=== PATIENT | male | born 1965 | race Caucasian/White ===

== ENCOUNTER 2018-04-02 10:12 | Emergency (ER) | payer BC ==
--- NOTE | 2018-04-02 10:37 | EKG ---
FACILITY: [facility] PATIENT NAME: LASHAUN MEDLEY : [id number] MR: [id number] V: [id number] EXAM DATE: ORDERING PHYSICIAN: JORGE HERRERA TECHNOLOGIST: Test Reason : chest pain Blood Pressure : / mmHG Vent. Rate : 095 BPM Atrial Rate : 095 BPM P-R Int : 164 ms QRS Dur : 078 ms QT Int : 364 ms P-R-T Axes : 050 038 038 degrees QTc Int : 457 ms Sinus rhythm Nonspecific ST findings No previous ECGs available Confirmed by TALHA ROME ([id number]) on 04/03/2018 5:23:37 AM Referred By: Confirmed By:TALHA ROME
[2018-04-02 10:42] LABS: PLATELET COUNT, AUTOMATED 197 K/uL (150-450)
--- NOTE | 2018-04-02 11:00 | RADIOLOGY IMAGING REPORT ---
FACILITY: [facility] - [place], [place] PATIENT NAME: Maxwell Marshall : 1965 MR: [id number] V: [id number] EXAM DATE: ORDERING PHYSICIAN: JORGE HERRERA TECHNOLOGIST: Location: [facility] [place] Patient: Maxwell Marshall : 1965 Visit/Account:[id number] Date of Sevice: 04/02/2018 Technique: CHEST PA AND LAT HISTORY: CHEST PAIN COMPARISON: None available Findings: The lungs are clear. No pleural effusion. There is elevation of the right hemidiaphragm. T he cardiomediastinal silhouette is normal. Impression: 1. No acute cardiopulmonary process. Report Dictated By: Zeeshan Mason DO at 04/02/2018 10:56 AM Report E-Signed By: Zeeshan Mason DO at 04/02/2018 10:57 AM WSN:[id number]
[2018-04-02] MEDS ORDERED: IOPAMIDOL 76% 100 ML INFUS BTL 100 ML ONE (11:38)
[2018-04-02] MEDS ORDERED: NS(*) 0.9% 50 ML BAG 50 ML ONE (11:39)
--- NOTE | 2018-04-02 12:11 | RADIOLOGY IMAGING REPORT ---
FACILITY: [facility] - [place] PATIENT NAME: Maxwell Marshall : 1965 MR: [id number] V: [id number] EXAM DATE: ORDERING PHYSICIAN: JORGE HERRERA TECHNOLOGIST: Location: [facility] Patient: Maxwell Marshall : 1965 Visit/Account:[id number] Date of Sevice: 04/02/2018 EXAMINATION: CT CHEST PULMONARY ANGIOGRAM COMPARISON: None available HISTORY: Chest pain and dyspnea. PROCEDURE: Pulmonary arterial phase imaging of the chest with 95 mL intravenous Isovue 370. Reconstru ction of the source data set includes multiplanar 2D in the sagittal and coronal planes, and 3D recon structed coronal slab MIP series. One of the following dose optimization techniques was utilized in the performance of this exam: Autom ated exposure control; adjustment of the mA and/or kV according to the patient's size; or use of an i terative reconstruction technique. Specific details can be referenced in the facility's radiology C T exam operational policy. FINDINGS: Pulmonary vasculature: There is good contrast opacification of the pulmonary arterial system. No pul monary embolism. Main pulmonary artery size is normal. Cardiac and mediastinum: Cardiac chamber size is normal. No pericardial effusion. No thoracic aorti c aneurysm. Lymph nodes: Numerous mildly enlarged mediastinal lymph nodes measuring up to 1.3 cm in short axis. Lungs and pleura: No focal consolidation or pulmonary nodule. No pneumothorax, pulmonary edema, or pl eural effusion. Airways: Negative. Upper abdomen: No acute findings. Osseous structures: Negative. IMPRESSION: 1. No pulmonary embolism or evidence of acute cardiopulmonary disease. 2. Mediastinal mild lymph node enlargement. This is nonspecific and could be reactive although correl ation with any history of malignancy is recommended. If there is a concern for malignancy, CT follow- up should be performed. Report Dictated By: Declan Romano MD at 04/02/2018 12:01 PM Report E-Signed By: Declan Romano MD at 04/02/2018 12:07 PM WSN:[id number]
[2018-04-02] MEDS ORDERED: ASPIRIN 81 MG CHEW PO ONE (12:25)
--- NOTE | 2018-04-02 12:59 | ER Report ---
History and Physical Time Seen By MD: 10:45 Hx. of Stated Complaint: PATIENT REPORTS CHEST PAIN WITH EXERTION FOR THE LAST 3 DAYS HPI/ROS This is a 52-year-old male who does not see a medical provider. He is not on any medications. Brother of an ME at age 57. He presents to the emergency department with 3 days of 10 out of 10 substernal chest pain with exertion. He denies pain at rest. He has never had chest pain until the past 3 days. 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 He usually does not have chest pain while working, however has been experiencing chest pain with walking as shortness 15 feet for the past 3 days. He did recently go on a trip to [place] over [facility], and the car ride there was 11 hours straight. He does not have any abdominal pain. Also describes shortness of breath when he gets the pain. He is not taking any aspirin or any other medication for the pain. Allergies: Coded Allergies: acetaminophen (Verified Allergy, Intermediate, ITCHING, 04/02/18) hydrocodone (Verified Allergy, Intermediate, ITCHING, 04/02/18) Reviewed Nurses Notes: Yes Old Medical Records Reviewed: Yes Hx Smoking: No Smoking Status: Never Smoker Exposure to Second Hand Smoke?: No Hx Substance Use Disorder: No Hx Alcohol Use: No Constitutional Vital Sign - Last 24 Hours 04/02/18 04/02/18 04/02/18 04/02/18 10:15 10:17 10:29 11:12 Pulse 96 83 Resp 24 9 B/P (MAP) 136/106 136/106 (116) 146/95 (112) Pulse Ox 92 90 04/02/18 04/02/18 04/02/18 11:30 12:00 12:30 Pulse 81 87 83 Resp 16 17 16 Pulse Ox 91 90 90 Physical Exam General Appearance: The patient is alert, has no immediate need for airway protection and no current signs of toxicity. Eyes: Pupils equal and round no injection. Respiratory: Chest is non tender, lungs are clear to auscultation. Cardiac: regular rate and rhythm Gastrointestinal: Abdomen is soft and non tender, no masses, bowel sounds normal. Neck: Neck is supple and non tender. Extremities have full range of motion and are non tender. Skin: No rashes or lesions. DIFFERENTIAL DIAGNOSIS: After history and physical exam differential diagnosis was considered for chest pain including but not limited to myocardial ischemia, pericarditis pulmonary embolus, chest wall pain, pleural inflammation and pulmonary infectious causes. Medical Decision Making Data Points Result Diagram: 04/02/18 1028 04/02/18 1028 Laboratory Hematology Test 04/02/18 10:28 04/02/18 12:08 Red Blood Count 5.05 M/uL (4.00-5.60) Mean Corpuscular Volume 97.6 fL (80.0-96.0) Mean Corpuscular Hemoglobin 33.8 pg (26.0-33.0) Mean Corpuscular Hemoglobin Concent 34.6 g/dL (32.0-36.0) Red Cell Distribution Width 13.4 % (11.5-14.5) Mean Platelet Volume 8.7 fL (7.2-11.1) Neutrophils (%) (Auto) 53.8 % (39.4-72.5) Lymphocytes (%) (Auto) 29.7 % (17.6-49.6) Monocytes (%) (Auto) 12.9 % (4.1-12.4) Eosinophils (%) (Auto) 2.2 % (0.4-6.7) Basophils (%) (Auto) 1.4 % (0.3-1.4) Nucleated RBC Relative Count (auto) 0.1 /100WBC Neutrophils # (Auto) 2.6 K/uL (2.0-7.4) Lymphocytes # (Auto) 1.5 K/uL (1.3-3.6) Monocytes # (Auto) 0.6 K/uL (0.3-1.0) Eosinophils # (Auto) 0.1 K/uL (0.0-0.5) Basophils # (Auto) 0.1 K/uL (0.0-0.1) Nucleated RBC Absolute Count (auto) 0.00 K/uL Sodium Level 140 mmol/L (137-145) Potassium Level 4.5 mmol/L (3.5-5.0) Chloride Level 106 mmol/L (98-107) Carbon Dioxide Level 25 mmol/L (22-30) Blood Urea Nitrogen 14 mg/dl (9-21) Creatinine 1.10 mg/dl (0.66-1.25) Glomerular Filtration Rate Calc > 60.0 Random Glucose 129 mg/dl (75-110) Calcium Level 8.9 mg/dl (8.4-10.2) Total Bilirubin 0.6 mg/dl (0.2-1.3) Aspartate Amino Transf (AST/SGOT) 75 U/L (0-35) Alanine Aminotransferase (ALT/SGPT) 112 U/L (0-56) Alkaline Phosphatase 65 U/L (0-126) Total Protein 7.7 g/dl (6.3-8.2) Albumin 4.1 g/dl (3.5-5.0) Troponin I < 0.012 ng/ml Lipase 71 U/L (23-300) Chemistry Test 04/02/18 10:28 04/02/18 12:08 White Blood Count 4.9 k/uL (4.5-11.0) Red Blood Count 5.05 M/uL (4.00-5.60) Hemoglobin 17.1 g/dL (14.0-18.0) Hematocrit 49.3 % (42.0-52.0) Mean Corpuscular Volume 97.6 fL (80.0-96.0) Mean Corpuscular Hemoglobin 33.8 pg (26.0-33.0) Mean Corpuscular Hemoglobin Concent 34.6 g/dL (32.0-36.0) Red Cell Distribution Width 13.4 % (11.5-14.5) Platelet Count 197 K/uL (150-450) Mean Platelet Volume 8.7 fL (7.2-11.1) Neutrophils (%) (Auto) 53.8 % (39.4-72.5) Lymphocytes (%) (Auto) 29.7 % (17.6-49.6) Monocytes (%) (Auto) 12.9 % (4.1-12.4) Eosinophils (%) (Auto) 2.2 % (0.4-6.7) Basophils (%) (Auto) 1.4 % (0.3-1.4) Nucleated RBC Relative Count (auto) 0.1 /100WBC Neutrophils # (Auto) 2.6 K/uL (2.0-7.4) Lymphocytes # (Auto) 1.5 K/uL (1.3-3.6) Monocytes # (Auto) 0.6 K/uL (0.3-1.0) Eosinophils # (Auto) 0.1 K/uL (0.0-0.5) Basophils # (Auto) 0.1 K/uL (0.0-0.1) Nucleated RBC Absolute Count (auto) 0.00 K/uL Glomerular Filtration Rate Calc > 60.0 Calcium Level 8.9 mg/dl (8.4-10.2) Total Bilirubin 0.6 mg/dl (0.2-1.3) Aspartate Amino Transf (AST/SGOT) 75 U/L (0-35) Alanine Aminotransferase (ALT/SGPT) 112 U/L (0-56) Alkaline Phosphatase 65 U/L (0-126) Total Protein 7.7 g/dl (6.3-8.2) Albumin 4.1 g/dl (3.5-5.0) Troponin I < 0.012 ng/ml Lipase 71 U/L (23-300) ED Course/Re-evaluation ED Course 52-year-old male with multiple undiagnosed risk factors for CDA. He is obese, has high blood pressure, and likely undiagnosed diabetes. He has a non-ischemic EKG. 2 normal troponins in the emergency department. A CTA of the chest to evaluate for PE is negative for any acute findings although there is a questionable mass that will need follow-up. I believe his history is concerning enough to warrant an observation admission with a stress test for further risk stratification. He will be transferred to [facility] where he will be admitted for a further workup and stress test. Decision to Disposition Date: Apr 02, 2018 Decision to Disposition Time: 14:08 Depart Departure Latest Vital Signs Vital Signs Date Time Temp Pulse Resp B/P (MAP) Pulse Ox O2 Delivery O2 Flow Rate FiO2 04/02/18 12:30 83 16 90 04/02/18 10:29 146/95 (112) Impression: Primary Impression: Chest pain in adult Condition: Improved Disposition: [facility]FER TO [facility] JORGE HERRERA MD Apr 02, 2018 12:59
[2018-04-02] MEDS ORDERED: NITROGLYCERIN 0.4 MG SUBL SL ONE (13:20)
[2018-04-02 14:15] VITALS: BP 125/90
== END 2018-04-02 14:36 | disposition short-term general hospital (02) ==
LOC: ER 10:24
DX: R07.9 Chest pain, unspecified (principal); E66.9 Obesity, unspecified
CPT/HCPCS: 36415; 71046; 71275; 83690; 84484; 85025; 93005; 99285; J7050; Q9967; 82040; 82247; 82310; 82374; 82435; 82565; 82947; 84075; 84132; 84155; 84295; 84450; 84460; 84520

== ENCOUNTER → 2018-04-02 | Outpatient (CLI) | payer BC | LOC: AMB 14:33 | PROVIDERS: ATTEND Nurse Practitioner | DX: I20.0 Unstable angina (principal) | CPT/HCPCS: A0425; A0426 ==